=== PATIENT | male | born 1995 | race American Indian/Alaskan Native ===

== ENCOUNTER 2017-10-19 20:39 | Emergency (ER) | payer SELFPAY ==
[2017-10-19] MEDS ORDERED: Ibuprofen 800 MG Tab PO ONE (21:05)
--- NOTE | 2017-10-19 21:08 | EDM.PDOC ---
ED HPI GENERAL MEDICAL PROBLEM - General Chief Complaint: ENT Problem Stated Complaint: TOOTHACHE Time Seen by Provider: 10/19/17 21:02 Source of Information: Reports: Patient, RN Notes Reviewed History Limitations: Reports: No Limitations - History of Present Illness INITIAL COMMENTS - FREE TEXT/NARRATIVE: 22-year-old gentleman presents to the emergency department day complaint of dental pain, he was set up to have his wisdom teeth extracted unfortunately he did not make appointment as he could not find a ride, he states is mild pain Tooth/Teeth Pain Score (Numeric/FACES): 5 - Related Data Allergies Allergy/AdvReac Type Severity Reaction Status Date / Time No Known Allergies Allergy Verified 10/19/17 20:54 Home Meds: Home Meds NK [No Known Home Meds] 10/19/17 [History] Past Medical History Musculoskeletal History: Reports: Fracture - Infectious Disease History Infectious Disease History: Reports: Chicken Pox Social & Family History - Tobacco Use Smoking Status *Q: Current Some Day Smoker Years of Tobacco use: 2 Packs/Tins Daily: 0.5 Used Tobacco, but Quit: No Second Hand Smoke Exposure: Yes - Caffeine Use Caffeine Use: Reports: None - Recreational Drug Use Recreational Drug Use: No ED ROS ENT - Review of Systems Review Of Systems: See Below Constitutional: Reports: No Symptoms HEENT: Reports: Dental Pain Respiratory: Reports: No Symptoms Cardiovascular: Reports: No Symptoms ED EXAM, ENT - Physical Exam Exam: See Below Exam Limited By: No Limitations General Appearance: Alert, WD/WN, No Apparent Distress Eye Exam: Bilateral Eye: Normal Inspection Mouth/Throat: Normal Inspection, Normal Gums, Normal Lips, Normal Oropharynx, Normal Teeth, Dental Pain Course - Vital Signs Last Recorded V/S: Last Vital Signs Temp 97.7 F 10/19/17 20:59 Pulse 81 10/19/17 20:59 Resp 16 10/19/17 20:59 BP 156/82 H 10/19/17 20:59 Pulse Ox 98 10/19/17 20:59 - Orders/Labs/Meds Meds: Medications Discontinued Medications Generic Name Dose Route Start Last Admin Trade Name Freq PRN Reason Stop Dose Admin Ibuprofen 800 mg 10/19/17 21:05 Motrin PO 10/19/17 21:06 ONETIME ONE Departure - Departure Time of Disposition: 21:08 Disposition: Home, Self-Care 01 Condition: Fair Clinical Impression: Pain, dental - Discharge Information Referrals: PCP,None [Primary Care Provider] - Additional Instructions: Use ibuprofen as needed for pain control, please follow-up with dentistry as soon as possible - Assessment/Plan Plan: Assessment Acuity = acute Site and laterality = dental pain Etiology = unclear etiology Manifestations = none Location of injury = Home Lab values = none Plan He declined the Toradol injection, was given 800 mg ibuprofen, prescription written for 600 mg by mouth 4 times a day of ibuprofen to take as needed recommend follow-up with dentistry as soon as possible Patient was in agreement with the plan all questions were answered, they were instructed to return to the emergency department or call for worsening symptoms. This note was dictated using [employer] voice recognition software please call with any questions.
== END 2017-10-19 21:17 | disposition home or self-care (01) ==
LOC: JP.ED 20:39
DX: K08.89 Other specified disorders of teeth and supporting structures (principal); F17.210 Nicotine dependence, cigarettes, uncomplicated
CPT/HCPCS: 99283; A9270